=== PATIENT | female | born 1980 | race Caucasian/White ===

== ENCOUNTER → 2022-08-02 | Outpatient (CLI) | payer OTHER | LOC: M WUC 13:03 | PROVIDERS: ATTEND Physician Assistant | DX: M79.671 Pain in right foot (principal) ==

== ENCOUNTER → 2023-08-05 | Outpatient (CLI) | payer OTHER | LOC: M WUC 08:46 | PROVIDERS: ATTEND Family Medicine | DX: M25.521 Pain in right elbow (principal) ==

== ENCOUNTER 2023-11-14 08:42 | Day surgery (SDC) | payer OTHER ==
[~2023-11-14] VITALS: Ht 180.3 cm; Wt 111.8 kg
[~2023-11-14 08:42] MED LIST: MELO15TA28 PO; OMEP40CA5 PO; PARO20TA3 PO
[2023-11-14] MEDS: NS 1,000 ML IV ONE (09:37)
[2023-11-14] MEDS ORDERED: propofoL 200 MG/20 ML VIAL As Ordered ONE (10:52)
[2023-11-14] MEDS ORDERED: LIDOCAINE 2% 100MG/5ML SDV (FOR ANES.) As Ordered ONE (10:52)
[2023-11-14] MEDS ORDERED: MIDAZOLAM INJ 2MG/2ML VIAL As Ordered ONE (10:52)
[2023-11-14] MEDS ORDERED: fentaNYL 100 MCG/2 ML INJECTION As Ordered ONE (10:53)
[2023-11-14 12:06] VITALS: BP 164/87; TEMP 97; O2SAT 95
== END 2023-11-14 11:50 | disposition home or self-care (01) ==
LOC: M OPP 08:42
PROVIDERS: ATTEND Surgery
DX: K92.1 Melena (principal); F41.9 Anxiety disorder, unspecified; Z79.899 Other long term (current) drug therapy; Z90.710 Acquired absence of both cervix and uterus; F17.220 Nicotine dependence, chewing tobacco, uncomplicated; R32 Unspecified urinary incontinence
CPT/HCPCS: 45378; J2250; J3010

== ENCOUNTER → 2024-11-24 | Outpatient (CLI) | payer OTHER, SELFPAY | LOC: M WUC 08:33 | PROVIDERS: ATTEND Physician Assistant Medical | DX: M25.562 Pain in left knee (principal) ==